=== PATIENT | female | born 1990 | race Caucasian/White ===

== ENCOUNTER 2023-09-09 06:24 | Emergency (ER) | payer OTHER ==
[~2023-09-09] VITALS: Ht 157.5 cm; Wt 105.4 kg
[2023-09-09 06:43] VITALS: O2SAT 99
[2023-09-09] MEDS ORDERED: PSEU120T56 MT (07:52)
[2023-09-09 08:28] VITALS: BP 116/89; PULSE 76; RESP 18; TEMP 97.6
== END 2023-09-09 08:29 | disposition home or self-care (01) ==
LOC: ER 06:24
DX: J06.9 Acute upper respiratory infection, unspecified (principal)
CPT/HCPCS: 81025; 99282

== ENCOUNTER 2025-02-07 06:28 | Emergency (ER) | payer OTHER ==
[~2025-02-07] VITALS: Ht 157.5 cm; Wt 116.0 kg
[~2025-02-07 06:28] MED LIST: PSEU120T56 MT
[2025-02-07 06:51] VITALS: O2SAT 98
[2025-02-07 07:52] LABS: BASOPHILS % 0.4 % (0.0-2.0); EOSINOPHILS % 0.5 % (0.0-5.0); HEMATOCRIT. 39.3 % (36.0-48.0); HEMOGLOBIN. 13.0 g/dL (12.0-16.0); LYMPHOCYTES % 15.6 % (20.0-50.0); MEAN PLATELET VOLUME 9.8 fl (7.4-10.4); MONOCYTES % 10.7 % (2.0-8.0); NEUTROPHILS % 72.8 % (40.0-76.0); PLATELET 232 x1000/uL (130-400); RED BLOOD CELL COUNT 4.65 mill/uL (4.2-5.4); RED CELL DISTRIBUTION WIDTH 13.2 % (11.6-14.6)
[2025-02-07 08:05] LABS: CREATININE 0.7 mg/dL (0.6-1.0); UREA NITROGEN BLOOD 8 mg/dL (9-23)
[2025-02-07] MEDS ORDERED: DOXY100T2 MT (08:10)
[2025-02-07 08:26] VITALS: BP 124/84; PULSE 89; RESP 15; TEMP 36.7; O2SAT 98
== END 2025-02-07 08:28 | disposition home or self-care (01) ==
LOC: ER 06:28
DX: J18.9 Pneumonia, unspecified organism (principal); R06.02 Shortness of breath; R05.9 Cough, unspecified; R07.89 Other chest pain; Z20.822 Contact with and (suspected) exposure to COVID-19
CPT/HCPCS: 36415; 71045; 80048; 81025; 85025; 99284